=== PATIENT | female | born 1980 | race Caucasian/White ===

== ENCOUNTER 2025-04-12 00:48 | Emergency (ER) | payer OTHER ==
[~2025-04-12] VITALS: Ht 167.6 cm; Wt 104.0 kg
--- NOTE | 2025-04-12 01:11 | ED.PDOC ---
History of Present Illness HPI Comments 45-year-old female who came to ER for abdominal pain. Patient is status post cholecystectomy. With a past 24 hours, patient has been complaining of intermittent episodes of right upper quadrant abdominal pain, that is progressively worse in the past 6 hours. Noted to be nauseated with chills, temperature 102 F on arrival. Patient given 100 mg of fentanyl by paramedics while en route to the ER. Denies any urinary symptoms REVIEW OF SYSTEMS: General: No fever, no chills, or fatigue HEENT: No sore throat, no earache, no congestion, no neck pain. Cardiac: No chest pain. No palpitations. Lungs: No shortness of breath, no cough. GI: No nausea, no vomiting, no diarrhea, no constipation, (+) RUQ abdominal pain : No dysuria, frequency, or urgency. No hematuria. Musculoskeletal: No joint pain , no joint swelling, no extremity edema. Skin: No rash, no itching. Neuro: No headache, no dizziness, no weakness EXAM: General: Awake, alert and oriented. No acute distress. Skin: Skin in warm, dry and intact. Appropriate color for ethnicity. HEENT: The head is normocephalic and atraumatic. Conjunctivae are clear without exudates or hemorrhage. Sclera is non-icteric. EOM are intact. No signs of nystagmus. Eyelids are normal in appearance without swelling or lesions. Oral mucosa is pink and moist Neck: The neck is supple with normal range of motion. No JVD. Cardiac: Heart rate and rhythm are normal. No murmurs, gallops, or rubs are auscultated. Respiratory: No signs of respiratory distress. Lung sounds are clear in all lobes bilaterally without rales, rhonchi, or wheezes. Abdominal: Abdomen is soft, left lower quadrant tenderness without distention. Bowel sounds are present and normoactive in all four quadrants. Extremities: Upper and lower extremities are atraumatic in appearance without deformity or edema. Neurological: The patient is awake, alert and oriented to person, place, and time with normal speech. Speech is clear. There is no facial asymmetry. Psychiatric: Appropriate mood and affect. Good judgement and insight Chief Complaint: Abdominal Pain Time Seen by MD: 01:11 Reviewed Notes: Rn Anesthetist Notes Allergies: Coded Allergies: NO KNOWN ALLERGIES (Unverified , 04/12/25) Information Source: Patient, Emergency Med Personnel Mode of Arrival: EMS Past Medical History PAST MEDICAL HISTORY: Denies Surgical History: Cholecystectomy, SPEECH PATHOLOGIST ASSISTANT History: Denies all SPEECH PATHOLOGIST ASSISTANT Hx Family History Family History: Reviewed,noncontributory to illness Social History Smoker: Non-Smoker Alcohol: Denies ETOH Use Drugs: Denies Drug Use Lives In: Home Was a procedure done? Was a procedure done?: No Differential Dx Considerations may include: Gastritis, gastroenteritis, hernia, kidney stones, UTI, abdominal pain X-Ray, Labs, Meds, VS Vital Signs Date Time Temp Pulse Resp B/P (MAP) Pulse Ox O2 Delivery O2 Flow Rate FiO2 04/12/25 05:06 99.9 112 16 124/64 (84) 99 99.9 04/12/25 00:48 102.0 110 20 122/62 97 102.0 Lab Test 04/12/25 04:45 04/12/25 01:25 Range/Units Lactic Acid Level 1.6 0.4-2.0 mmol/L White Blood Count 14.9 H 4.4-10.8 10^3/uL Red Blood Count 4.50 4.0-5.20 10^6/uL Hemoglobin 13.7 12.2-16.2 g/dL Hematocrit 40.8 36.0-46.0 % Mean Corpuscular Volume 90.6 80.0-100.0 fL Mean Corpuscular Hemoglobin 30.5 28.0-32.0 pg Mean Corpuscular Hemoglobin Concent 33.6 32.0-36.0 g/dL Red Cell Distribution Width 13.4 11.8-14.3 % Platelet Count 245 140-450 10^3/uL Mean Platelet Volume 8.5 6.9-10.8 fL Neutrophils (%) (Auto) 78.4 37.0-80.0 % Lymphocytes (%) (Auto) 12.5 10.0-50.0 % Monocytes (%) (Auto) 8.7 0.0-12.0 % Eosinophils (%) (Auto) 0.3 0.0-7.0 % Basophils (%) (Auto) 0.1 0.0-2.0 % Neutrophils # (Auto) 11.7 H 1.6-8.6 10 ^3/uL Lymphocytes # (Auto) 1.9 0.4-5.4 10 ^3/uL Monocytes # (Auto) 1.3 0-1.3 10 ^3/uL Eosinophils # (Auto) 0 0-0.8 10 ^3/uL Basophils # (Auto) 0 0-0.2 10 ^3/uL Nucleated Red Blood Cells 0.0 % Sodium Level 140 136-145 mmol/L Potassium Level 3.8 3.5-5.1 mmol/L Chloride Level 104 98-107 mmol/L Carbon Dioxide Level 27 20-31 mmol/L Anion Gap 9 5-15 Blood Urea Nitrogen 9 9-23 mg/dL Creatinine 0.76 0.550-1.02 mg/dL Glomerular Filtration Rate Calc 98 >90 mL/min BUN/Creatinine Ratio 11.8 10.0-20.0 Serum Glucose 114 H 74-106 mg/dL Calcium Level 9.1 8.7-10.4 mg/dL Total Bilirubin 1.0 0.2-1.0 mg/dL Aspartate Amino Transferase (AST) 38 13-40 U/L Alanine Aminotransferase (ALT) 59 H 7-40 U/L Alkaline Phosphatase 71 46-116 U/L Total Protein 7.6 5.7-8.2 g/dL Albumin 4.3 3.2-4.8 g/dL Lipase 41 12-53 U/L Current Medications Medications (Trade) Dose Ordered Sig/Pierre Route Start Time Stop Time Status Last Admin Ketorolac Tromethamine (Toradol Injection) 15 mg ONCE ONCE IV 04/12/25 03:30 04/12/25 03:31 DC 04/12/25 05:36 Piperacillin Sod/ Tazobactam Sod 100 ml @ 100 mls/hr ONCE ONCE IV 04/12/25 04:15 04/12/25 05:14 DC 04/12/25 05:35 Sodium Chloride 1,000 ml @ 1,000 mls/hr Q1H ONCE IV 04/12/25 04:15 04/12/25 05:14 DC 04/12/25 04:27 Sodium Chloride 1,000 ml @ 1,000 mls/hr Q1H ONCE IV 04/12/25 04:15 04/12/25 05:14 DC 04/12/25 04:27 Exam: CT CT AB PEL WO CON-NO ORAL OR IV History: RUQ ABD PAIN, S/P CHOLECYSTECTOMY Comparison Study: None Technique: CT acquisition of the abdomen and pelvis without contrast. Axial, coronal and sagittal multiplanar reformats were obtained from the axial data set by the technologist. Radiation Dose : 1. Abdomen/Pelvis: CTDIvol 25.46 mGy, DLP 1527.86 mGy*cm. Findings: Evaluation of solid organs is limited due to lack of intravenous contrast use. Lower Chest: No acute abnormality. Partially imaged silicone breast implants. Liver: Diffuse hypoattenuation. Gallbladder and Biliary Tree: Cholecystectomy change. Pancreas: Unremarkable. Spleen: Unremarkable. Adrenal Glands: Unremarkable. Kidneys/Ureters: No urinary stone or obstruction. Left extrarenal pelvis versus renal sinus cyst. Bladder: Grossly unremarkable for degree of distention. Pelvic Organs: Unremarkable Bowel: Normal caliber without wall thickening. Normal appendix. Vasculature: Unremarkable. Lymphadenopathy: No obvious adenopathy. Peritoneum: Focal inflammation with central fat attenuation along the proximal sigmoid colon in the left lower quadrant. No ascites, free air, or fluid collection. Abdominal Wall: No significant hernia. Musculoskeletal: No acute findings. L5-S1 spondylosis. IMPRESSION: 1. Left lower quadrant inflammation compatible with intraperitoneal focal fat infarction, more likely epiploic appendagitis than omental infarct. 2. No other acute abdominopelvic abnormality. Chronic and incidental findings a lin. Radiation optimization: All CT scans at this facility use at least one of these dose optimization techniques: automated exposure control mA and/or kV adjustment per patient size (includes targeted exams where dose is matched to clinical indication) or iterative reconstruction. Time of 1ST Reevaluation: 01:03 Reevaluation 1ST: Unchanged Patient Education/Counseling: Need For Follow Up Family Education/Counseling: No Family Present Change of Shift?: Yes (Signed out to Dr. Groves pending admission vs transfer to [facility]) SEPSIS Sepsis Screen Physician Orders Urinalysis (04/12/25 01:03) Ct Ab Pel Wo Con-No Oral Or Iv (04/12/25 01:03) Sodium Chloride 0.9% (04/12/25 04:15) Saline Lock (04/12/25 04:09) White Sugar Supervisor (04/12/25 ) Rectal/Core Temps Only (04/12/25 04:09) Notify Md If Abnormal Vs (04/12/25 04:09) Blood Culture (04/12/25 04:09) Urinalysis (04/12/25 04:09) Vital Signs Q1HR (04/12/25 04:09) Vital Signs Date Time Temp Pulse Resp B/P (MAP) Pulse Ox O2 Delivery O2 Flow Rate FiO2 04/12/25 05:06 99.9 112 16 124/64 (84) 99 99.9 04/12/25 00:48 102.0 110 20 122/62 97 102.0 Laboratory Tests Test 04/12/25 01:25 04/12/25 04:45 White Blood Count 14.9 10^3/uL (4.4-10.8) H Lactic Acid Level 1.6 mmol/L (0.4-2.0) Medications Medications Dose Ordered Sig/Pierre Route Start Time Stop Time Status Last Admin Dose Admin Ketorolac Tromethamine 15 mg ONCE ONCE IV 04/12/25 03:30 04/12/25 03:31 DC 04/12/25 05:36 Piperacillin Sod/ Tazobactam Sod 100 ml @ 100 mls/hr ONCE ONCE IV 04/12/25 04:15 04/12/25 05:14 DC 04/12/25 05:35 Sodium Chloride 1,000 ml @ 1,000 mls/hr Q1H ONCE IV 04/12/25 04:15 04/12/25 05:14 DC 04/12/25 04:27 Sodium Chloride 1,000 ml @ 1,000 mls/hr Q1H ONCE IV 04/12/25 04:15 04/12/25 05:14 DC 04/12/25 04:27 Departure 1 Departure Time of Disposition: 05:54 Impression: Primary Impression: Suspected sepsis Additional Impression: Intra-abdominal infection Condition: Stable Critical Care Note Critical Care Time?: No Stability Stability form required: No Heart Score Heart Score: Heart Score Response (Comments) Value History N/A 0 EKG N/A 0 Age N/A 0 Risk Factors N/A 0 Troponin N/A 0 Total 0 I personally scribed for MARCELLE MANTILLA MD ([email or web address]) on 04/12/25 at 01:11. Electronically submitted by Dariel Arechiga ([facility]). I personally scribed for MARCELLE MANTILLA MD ([email or web address]) on 04/12/25 at 02:29. Electronically submitted by Dariel Arechiga ([email or web address]). I personally scribed for MARCELLE MANTILLA MD ([email or web address]) on 04/12/25 at 05:57. Electron[facility] by [facility]iel [facility] ([facility] MARCELLE MANTILLA MD Apr 12, 2025 01:11
[2025-04-12 02:01] LABS: Hematocrit 40.8 % (36.0-46.0); Hemoglobin 13.7 g/dL (12.2-16.2); Mean Corpuscular Hemoglobin 30.5 pg (28.0-32.0); Mean Corpuscular Volume 90.6 fL (80.0-100.0); Nucleated Red Blood Cells % 0.0 %
[2025-04-12 02:08] LABS: Alkaline Phosphatase 71 U/L (46-116); Anion Gap 9 (5-15); BUN/Creatinine Ratio 11.8 (10.0-20.0); Calcium 9.1 mg/dL (8.7-10.4); Carbon Dioxide 27 mmol/L (20-31); Chloride 104 mmol/L (98-107); Lipase 41 U/L (12-53); Potassium 3.8 mmol/L (3.5-5.1); Sodium 140 mmol/L (136-145); Total Protein 7.6 g/dL (5.7-8.2)
[2025-04-12 02:09] LABS: Albumin 4.3 g/dL (3.2-4.8)
[2025-04-12 02:10] LABS: Bilirubin, Total 1.0 mg/dL (0.2-1.0)
--- NOTE | 2025-04-12 02:26 | DVH ---
Exam: CT CT AB PEL WO CON-NO ORAL OR IV History: RUQ ABD PAIN, S/P CHOLECYSTECTOMY Comparison Study: None Technique: CT acquisition of the abdomen and pelvis without contrast. Axial, coronal and sagittal multiplanar reformats were obtained from the axial data set by the technologist. Radiation Dose : 1. Abdomen/Pelvis: CTDIvol 25.46 mGy, DLP 1527.86 mGy*cm. Findings: Evaluation of solid organs is limited due to lack of intravenous contrast use. Lower Chest: No acute abnormality. Partially imaged silicone breast implants. Liver: Diffuse hypoattenuation. Gallbladder and Biliary Tree: Cholecystectomy change. Pancreas: Unremarkable. Spleen: Unremarkable. Adrenal Glands: Unremarkable. Kidneys/Ureters: No urinary stone or obstruction. Left extrarenal pelvis versus renal sinus cyst. Bladder: Grossly unremarkable for degree of distention. Pelvic Organs: Unremarkable Bowel: Normal caliber without wall thickening. Normal appendix. Vasculature: Unremarkable. Lymphadenopathy: No obvious adenopathy. Peritoneum: Focal inflammation with central fat attenuation along the proximal sigmoid colon in the left lower quadrant. No ascites, free air, or fluid collection. Abdominal Wall: No significant hernia. Musculoskeletal: No acute findings. L5-S1 spondylosis. IMPRESSION: 1. Left lower quadrant inflammation compatible with intraperitoneal focal fat infarction, more likely epiploic appendagitis than omental infarct. 2. No other acute abdominopelvic abnormality. Chronic and incidental findings above. Radiation optimization: All CT scans at this facility use at least one of these dose optimization techniques: automated exposure control mA and/or kV adjustment per patient size (includes targeted exams where dose is matched to clinical indication) or iterative reconstruction.
[2025-04-12 02:27] LABS: Alanine Aminotransferase 59 U/L (7-40); Blood Urea Nitrogen 9 mg/dL (9-23); Glucose 114 mg/dL (74-106)
[2025-04-12] MEDS: SODIUM CHLORIDE 0.9% 1,000 ML IV ONE ×3 (04:27→07:14)
[2025-04-12] MEDS: PIPERACILLIN-TAZOB 3.375GM 100 ML IV ONE ×2 (05:35→08:25)
[2025-04-12] MEDS: KETOROLAC TROMETH 30 MG/ML 1ML VIAL IV ONE (05:36)
[2025-04-12 07:57] VITALS: PULSE 90; RESP 17; O2SAT 96
[2025-04-12] MEDS: MORPHINE SULFATE 4 MG/ML SYR/VIAL ONE ×2 (08:02→11:00)
[2025-04-12] MEDS: ONDANSETRON HCL 4 MG/2 ML VIAL ONE ×2 (08:03→11:00)
[2025-04-12] MEDS: MORPHINE SULFATE 4 MG/ML SYR/VIAL IV ONE ×3 (08:04→12:48)
[2025-04-12] MEDS: ONDANSETRON HCL 4 MG/2 ML VIAL IV ONE ×3 (08:04→12:49)
[2025-04-12] MEDS: KETOROLAC TROMETH 30 MG/ML 1ML VIAL ONE (08:25)
[2025-04-12 11:10] LABS: Urine Protein, UAD TRACE (Negative)
[2025-04-12] MEDS ORDERED: ONDANSETRON HCL 4 MG/2 ML VIAL ONE (12:41)
[2025-04-12] MEDS ORDERED: MORPHINE SULFATE 4 MG/ML SYR/VIAL ONE (12:41)
[2025-04-12 13:19] VITALS: BP 116/57; PULSE 85; RESP 17; TEMP 98.1; O2SAT 96
== END 2025-04-12 13:21 | disposition short-term general hospital (02) ==
LOC: EDBD 00:48 → ER 00:48
DX: B99.8 Other infectious disease (principal); Z90.49 Acquired absence of other specified parts of digestive tract; Z98.890 Other specified postprocedural states
CPT/HCPCS: 36415; 74176; 80053; 81001; 83605; 83690; 85025; 87040; 96361; 96365; 96375; 96376; 99285; J1885; J2270; J2405; J2543; J7030